=== PATIENT | female | born 1955 | race Caucasian/White ===

== ENCOUNTER 2024-09-29 13:27 | Emergency (ER) | payer OTHER, MEDICARE ==
[2024-09-29 14:39] LABS: Absolute Basophils 0.1 K/uL (0-0.5); Absolute Eosinophils 0.5 K/uL (0-0.5); Absolute Lymphocytes (CBC) 3.2 K/uL (0.7-4.9); Absolute Monocytes 1.1 K/uL (0.1-1.3); Absolute Neutrophil 5.4 K/uL (1.8-8.0); Basophils % 0.6 % (0-1.3); Eosinophils % 5.3 % (0-4.4); Hematocrit 46.4 % (36.0-45.0); Hemoglobin 16.2 g/dL (12.0-15.0); MCH 31.4 pg (27.0-35.0); MCHC 34.9 g/dL (32.0-36.0); MPV 10.2 fL (7.6-11.3); Monocytes % 10.5 % (3.3-12.3); Neutrophils % 52.6 % (41.7-73.7); Nucleated Red Blood Cells % 0.1 % (0-0); Platelets 249 thou/uL (152-406); RBC Red Blood Cell Count 5.16 M/uL (3.86-4.86); Red Cell Distribution Width 14.1 % (12.1-15.2)
[2024-09-29 14:56] LABS: Albumin 3.5 g/dL (3.4-5.0); Albumin/Globulin Ratio 0.8 (1.1-1.8); Anion Gap 9.1 mEq/L (5.0-15.0); Bilirubin Total 0.6 mg/dL (0.2-1.0); Globulin 4.3 g/dL (2.3-3.5); Potassium 4.1 mEq/L (3.5-5.1); Protein, Total 7.8 g/dL (6.4-8.2)
[2024-09-29] MEDS ORDERED: NA CHLORIDE 0.9% 500 ML ONE (15:13)
--- NOTE | 2024-09-29 15:54 | RAD REPORT ---
EXAMINATION: US LEFT LOWER EXTREMITY VENOUS DOPPLER CLINICAL INDICATION: HS MAIN right calf PAIN Bed Name: [id number] Y TECHNIQUE: Complete bilateral duplex sonography of the LEFT lower extremity veins was performed. The examination included compression for vein patency, color Doppler imaging and flow augmentation in response to distal compression of the distal external iliac, common femoral, femoral, popliteal, tibi al, and great and small saphenous veins. COMPARISON: No prior exam. FINDINGS: Duplex sonography testing of the veins of the LEFT lower extremity was performed. Color flow imaging shows all veins to be compressible with [id number] color filling. Pulsatile and phasic flow is present within all lower extremity deep and superficial veins examined. IMPRESSION: No evidence of deep venous thrombosis. Edema with fat echogenicity in the subcutis tissues involving the areas of bruising along the lower l eg.
--- NOTE | 2024-09-29 16:03 | EDPHYS ---
Physician Documentation [facility] Name: Mayra Carson Age: 69 yrs Sex: Female : 1955 Arrival Date: 09/29/2024 Time: 13:27 Bed 23 Private MD: ED Physician Manuel Davalos HPI: 09/29 14:01 This 69 yrs old Female presents to ER via Ambulatory with complaints of Knee Pain. kb 14:01 Pt is a 69 year old female who presents for pain and bruising behind right knee that kb started last week. States her daughter pointed out the bruise last week, but she didn't think anything of it because she hasn't injured herself. States it started being painful over the last few days so she became concerned about a blood clot. States she is going on a trip at the end of the week and wanted to make sure it wasn't a clot before she went. Historical: - Allergies: 13:36 Codeine; ll1 13:36 Adhesives; ll1 - PMHx: 13:36 Hypertensive disorder; Hypothyroidism; Hypercholesterolemia; Sleep apnea; ll1 - Immunization history:: Adult Immunizations up to date. - Infectious Disease History:: Denies. - Social history:: Smoking status: Patient denies any tobacco usage or history of. ROS: 13:58 Constitutional: As per HPI kb Exam: 13:58 Constitutional: This is a well developed, well nourished patient who is awake, alert, kb and in no acute distress. Head/Face: Normocephalic, atraumatic. ENT: Moist Mucous membranes Respiratory: Respirations even and unlabored. No increased work of breathing. Talking in full sentences Skin: Warm, dry with normal turgor. Normal color. Neuro: Awake and alert, GCS 15, oriented to person, place, time, and situation. 13:58 Musculoskeletal/extremity: Extremities: grossly normal except: noted in the posterior aspect of right knee: ecchymosis, pain, tenderness, ROM: intact in all extremities, Circulation is intact in all extremities. Sensation intact. Weight bearing: able to fully bear weight, Vital Signs: 13:36 BP 109 / 88; Pulse 99; Resp 17; Pulse Ox 98% on R/A; ll1 15:00 BP 143 / 93; Pulse 71; Resp 17; Pulse Ox 98% ; me1 16:00 BP 120 / 94; Pulse 79; Resp 18; Temp 98.5; Pulse Ox 99% ; me1 MDM: 13:31 Medical Screening Exam initiated kb 14:00 Data reviewed: vital signs, nurses notes. kb 16:02 Differential diagnosis: contusion, sprain, dvt, bakers cyst, thrombocytopenia. kb Counseling: I had a detailed discussion with the patient and/or guardian regarding the historical points, exam findings, and any diagnostic results supporting the discharge/admit diagnosis, lab results, radiology results, the need for outpatient follow up, a family practitioner, to return to the emergency department if symptoms worsen or persist or if there are any questions or concerns that arise at home. 09/29 13:40 Order name: CBC with Diff; Complete Time: 14:48 kb 09/29 13:40 Order name: CMP; Complete Time: 15:03 kb 09/29 13:40 Order name: US Extremity Venous Unilateral Ltd; Complete Time: 15:55 kb 09/29 13:40 Order name: IV Start; Complete Time: 14:32 kb Administered Medications: 15:16 Drug: NS 0.9% IV 500 ml 500 ml IV at 1 bolus once; to be given as a bolus over 30 me1 minutes Volume: 500 ml; Route: IV; Rate: 1 bolus; Site: right antecubital; 15:56 Follow up: Response: No adverse reaction; IV Status: Completed infusion; IV Intake: me1 500ml Disposition: 17:30 Co-signature as Attending Physician, Manuel Davalos MD I reviewed the patient's care rt provided by the Advanced Practice Provider and agree with the diagnosis and treatment plan. Disposition Summary: 09/29/24 16:03 Discharge Ordered Notes: Location: Home kb Condition: Stable kb Diagnosis - Pain in right lower leg kb - Volume depletion, unspecified kb Followup: kb - With: Emergency Department - When: As needed - Reason: Worsening of condition Followup: kb - With: Private Physician - When: 2 - 3 days - Reason: Recheck today's complaints, Continuance of care, Re-evaluation by your physician Discharge Instructions: - Discharge Summary Sheet kb - Musculoskeletal Pain kb - Dehydration, Adult, [id number] kb Forms: - Medication Reconciliation Form kb - Antibiotic Education kb - Prescription Opioid Use kb - Patient Portal Instructions kb - Leadership Thank You Letter kb Signatures: Dispatcher [employer] Izzy Dejesus, FITTING ROOM ASSOCIATE-C FITTING ROOM ASSOCIATE-Vince Gaitan, RN RN ll1 Manuel Davalos MD MD rt Cherry Carrillo RN RN me1
--- NOTE | 2024-09-29 16:03 | ER ---
Nurse's Notes [facility] [place] Name: Mayra Carson Age: 69 yrs Sex: Female : 1955 Arrival Date: 09/29/2024 Time: 13:27 Bed 23 Private MD: Diagnosis: Pain in right lower leg;Volume depletion, unspecified Presentation: 09/29 13:35 Chief complaint: Patient states: Bruise to back of R knee for 1 week. Now its tender, me1 no known trauma. 13:36 Coronavirus screen: Client denies travel out of the [place] in the last 14 days. At this ll1 time, the client does not indicate any symptoms associated with coronavirus-19. Ebola Screen: Patient denies travel to an Ebola-affected area in the 21 days before illness onset. Initial Sepsis Screen: Does the patient meet any 2 criteria? No. Patient's initial sepsis screen is negative. Does the patient have a suspected source of infection? No. Patient's initial sepsis screen is negative. Risk Assessment: Do you want to hurt yourself or someone else? Patient reports no desire to harm self or others. Onset of symptoms was September 22, 2024. 13:36 Method Of Arrival: Ambulatory ll1 13:36 Acuity: LILI 3 ll1 Triage Assessment: 13:38 General: Appears uncomfortable, Behavior is calm, cooperative, appropriate for age. ll1 Pain: Complains of pain in posterior R knee Quality of pain is described as aching. Derm: Reports bruise to back of R knee. Musculoskeletal: Reports pain in right leg. Injury Description: no specific injury. Historical: - Allergies: 13:36 Codeine; ll1 13:36 Adhesives; ll1 - PMHx: 13:36 Hypertensive disorder; Hypothyroidism; Hypercholesterolemia; Sleep apnea; ll1 - Immunization history:: Adult Immunizations up to date. - Infectious Disease History:: Denies. - Social history:: Smoking status: Patient denies any tobacco usage or history of. Screenin:38 [facility] ED Fall Risk Assessment (Adult) History of falling in the last 3 months, me1 including since admission No falls in past 3 months (0 pts) Confusion or Disorientation No (0 pts) Intoxicated or Sedated No (0 pts) Impaired Gait No (0 pts) Mobility Assist Device Used No (0 pt) Altered Elimination No (0 pt) Score/Fall Risk Level 0 - 2 = Low Risk Maintained a safe environment, Provided non-skid footwear, Hourly rounding (assess needs \T\ fall precautionary measures) done. Abuse screen: Denies threats or abuse. Nutritional screening: No deficits noted. Tuberculosis screening: No symptoms or risk factors identified. Assessment: 14:17 Reassessment: No changes from previously documented assessment. Patient and/or family ll1 updated on plan of care and expected duration. Pain level reassessed. 14:38 General: Appears uncomfortable, well groomed, well developed, well nourished, Behavior me1 is cooperative, appropriate for age, anxious, crying, Reports Bruise to back of R knee for 1 week. Now its tender, no known trauma. Pain: Denies pain. Neuro: Level of Consciousness is awake, alert, obeys commands, Oriented to person, place, time, situation, Appropriate for age. Cardiovascular: Patient's skin is warm and dry. Respiratory: Airway is patent Respiratory effort is even, unlabored, Respiratory pattern is regular, symmetrical. GI: No signs and/or symptoms were reported involving the gastrointestinal system. : No signs and/or symptoms were reported regarding the genitourinary system. EENT: No signs and/or symptoms were reported regarding the EENT system. Derm: Skin is intact, is healthy with good turgor, Skin is pink, warm \T\ dry. Bruising that is dark purple, on posterior aspect of right knee. Musculoskeletal: Reports bruise to posterior right knee. Vital Signs: 13:36 BP 109 / 88; Pulse 99; Resp 17; Pulse Ox 98% on R/A; ll1 15:00 BP 143 / 93; Pulse 71; Resp 17; Pulse Ox 98% ; me1 16:00 BP 120 / 94; Pulse 79; Resp 18; Temp 98.5; Pulse Ox 99% ; me1 ED Course: 13:30 Patient arrived in ED. cj3 13:31 [facility]C [facility]. kb 13:31 Manuel Davalos MD is Attending Physician. kb 13:35 Arm band placed on. ph 13:36 Triage completed. ll1 14:16 Patient placed in an exam room, on a stretcher. ll1 14:17 Cherry Carrillo, RN is Primary Nurse. me1 14:27 US Extremity Venous Unilateral Ltd In Process Unspecified. EDMS 14:32 CMP Sent. me1 14:32 CBC with Diff Sent. me1 14:32 Initial lab(s) drawn, by me, sent to lab. Inserted saline lock: 20 gauge in right me1 antecubital area, using aseptic technique. 14:38 Patient has correct armband on for positive identification. Bed in low position. Call me1 light in reach. Side rails up X 1. Provided Education on: POC. Verbalized understansding.. Client placed on continuous cardiac and pulse oximetry monitoring. NIBP monitoring applied. Pulse ox on. NIBP on. 14:38 No provider procedures requiring assistance completed. me1 16:08 IV discontinued, intact, bleeding controlled, No redness/swelling at site. Pressure me1 dressing applied. Administered Medications: 15:16 Drug: NS 0.9% IV 500 ml 500 ml IV at 1 bolus once; to be given as a bolus over 30 me1 minutes Volume: 500 ml; Route: IV; Rate: 1 bolus; Site: right antecubital; 15:56 Follow up: Response: No adverse reaction; IV Status: Completed infusion; IV Intake: me1 500ml Medication: 14:38 VIS not applicable for this client. me1 Intake: 15:56 IV: 500ml; Total: 500ml. me1 Outcome: 16:03 Discharge ordered by . kb 16:08 Discharged to home ambulatory, me1 16:08 Condition: stable 16:08 Discharge instructions given to patient, Instructed on discharge instructions, follow up and referral plans. Demonstrated understanding of instructions, follow-up care, 16:08 Patient left the ED. vt1 Signatures: Dispatcher [employer] EDIzzy Haji, TRADE MARK ATTORNEY-C TRADE MARK ATTORNEY-Ckb Fabiola Salter RN RN ph Vince Aguilera RN RN 1 Cherry Carrillo, FAVIAN RN vt1 Denita España 3 Corrections: (The following items were deleted from the chart) 13:38 13:36 Acuity: LILI 4 ll1 ll1 14:38 13:35 Chief complaint: Patient states: Bruise to back of R knee for 1 week. Now its me1 tender, no known trauma. ph 16:04 16:00 BP 120 / 94; Pulse 79bpm; Resp 18bpm; Pulse Ox 99%; me1 me1
[2024-09-29 16:26] VITALS: BP 120/94; TEMP 98.5; O2SAT 99
== END 2024-09-29 16:08 | disposition home or self-care (01) ==
LOC: ER 13:27
DX: M79.661 Pain in right lower leg (principal); E86.9 Volume depletion, unspecified
CPT/HCPCS: 85025; 36415; 80053; 93971; 96360; 99284; J7040